=== PATIENT | female | born 1950 | race Two or more races ===

== ENCOUNTER 2021-08-31 13:37 | Inpatient (IN) | payer MEDICARE, MEDICAID ==
[~2021-08-31] VITALS: Ht 172.7 cm; Wt 105.3 kg
[2021-08-31] MEDS ORDERED: NALOXONE HCL 1MG/ML 2ML SYRINGE IV ONE (14:00)
[2021-08-31] MEDS ORDERED: ETOMIDATE (2MG/ML) 20ML VIAL IV ONE ×2 (14:20→14:25)
[2021-08-31] MEDS ORDERED: MIDAZOLAM DRIP 50 mg/50mL 50 ML IV ONE (14:20)
[2021-08-31] MEDS ORDERED: MIDAZOLAM HCL 5 MG/ML-1ML VIAL ONE (14:22)
[2021-08-31] MEDS ORDERED: NOREPINEPHRINE 8 MG/250ML KIT 250 ML IV ONE (14:24)
[2021-08-31] MEDS ORDERED: MIDAZOLAM HCL 5 MG/ML-1ML VIAL IV ONE (14:24)
[2021-08-31 14:26] VITALS: BP 80/42
[2021-08-31] MEDS: NOREPINEPHRINE 8 MG/250ML KIT 250 ML IV SCH ×2 (14:30→21:45)
[2021-08-31] MEDS: MIDAZOLAM DRIP 50 mg/50mL 50 ML IV SCH (14:47)
[2021-08-31 14:52] LABS: Hematocrit 26.1 % (36.0-46.0); Hemoglobin 8.5 g/dL (12.2-16.2); Mean Corpuscular Hemoglobin 29.4 pg (28.0-32.0); Mean Corpuscular Hgb Conc. 32.6 g/dL (32.0-36.0); Mean Corpuscular Volume 90.2 fL (80.0-100.0); Red Blood Cells 2.89 10^6/uL (4.0-5.20); Red Cell Distribution Width 16.7 % (11.8-14.3)
[2021-08-31 14:55] LABS: White Blood Cell 1.2 10^3/uL (4.4-10.8)
[2021-08-31 14:56] LABS: Basophils % (manual) 0 (0.0-2.0); Blast Cells 0; Eosinophils % (manual) 0 (0-7); Metamyelocytes % 0; Myelocytes % 0; Promyelocytes % 0; Reactive Lymphocytes 0
[2021-08-31 15:06] LABS: Albumin 1.6 g/dL (3.4-5.0); Anion Gap 10 (5-15); Blood Alcohol < 3.0 mg/dL (0-5); Blood Urea Nitrogen 68 mg/dL (7-18); Calcium 7.3 mg/dL (8.5-10.1); Carbon Dioxide 14 mmol/L (21-32); Chloride 122 mmol/L (98-107); Glucose 54 mg/dL (74-106); Potassium 3.8 mmol/L (3.5-5.1); Sodium 146 mmol/L (136-145)
[2021-08-31 15:09] LABS: Alanine Aminotransferase 9 U/L (13-56); Alkaline Phosphatase 45 U/L (45-117); Aspartate Aminotransferase 17 U/L (15-37); BUN/Creatinine Ratio 67.3; Bilirubin, Total 0.4 mg/dL (0.2-1.0); GFR African American 69 mL/min; GFR Non-African American 57 mL/min; Total Protein 4.5 g/dL (6.4-8.2)
[2021-08-31 15:19] LABS: Band Neutrophils % (manual) 6; Lymphocytes % (manual) 15 (10.0-50.0); Monocytes % (manual) 4 (0-12)
[2021-08-31 15:28] LABS: Urine Bacteria MANY /hpf (None Seen); Urine Blood 1+ /uL (Negative); Urine Specific Gravity 1.013 (1.001-1.035); Urine WBC 13 /hpf (0 - 5); Urine WBC Clumps PRESENT /hpf (None Seen)
[2021-08-31 15:41] LABS: Amphetamine Screen, Urine NEGATIVE (NEGATIVE); Barbiturate Scree,Urine NEGATIVE (NEGATIVE); Benzodiazephine Screen, Urine NEGATIVE (NEGATIVE); Cannabinoid Screen, Urine NEGATIVE (NEGATIVE); Cocaine Screen, Urine NEGATIVE (NEGATIVE); Opiate Scree,Urine NEGATIVE (NEGATIVE); Phencyclidine Screen, Urine NEGATIVE (NEGATIVE)
[2021-08-31] MEDS ORDERED: DEXTROSE 50% SYRINGE 50 ML IV ONE (15:56)
[2021-08-31 16:28] VITALS: BP 127/71
[2021-08-31] MEDS ORDERED: DEXTROSE (50%) 50ML SYRG IV ONE ×3 (16:30→20:00)
[2021-08-31] MEDS ORDERED: ACCU-CHEK COMFORT CURVE STRIP VI ONE ×2 (16:30→16:45)
[2021-08-31] MEDS ORDERED: DEXTROSE 10% 1,000 ML IV ONE (18:00)
[2021-08-31 18:30] VITALS: BP 120/39
[2021-08-31 20:10] VITALS: BP 120/66
[2021-08-31] MEDS ORDERED: PIPERACILLIN-TAZOB 3.375GM 100 ML IV ONE (20:30)
[2021-08-31] MEDS ORDERED: HYDROCORTISONE SOD SUCC 100 MG/2ML INJ VIAL IV ONE (21:00)
[2021-08-31] MEDS: VASOPRESSIN 50 UNITS in D5W 5% 247.5 ML IV SCH (21:06)
[2021-08-31] MEDS ORDERED: VANCOMYCIN 1GM/250ML 250 ML IV ONE ×2 (21:30→22:45)
[2021-08-31] MEDS: D5W/SOD CHL 0.45% 1,000 ML IV SCH (21:45)
[2021-08-31] MEDS ORDERED: ONDANSETRON HCL 4 MG/2 ML VIAL IV PRN (21:45)
[2021-08-31] MEDS ORDERED: DEXTROSE (50%) 50ML SYRG IV PRN (21:45)
[2021-08-31] MEDS ORDERED: VANCOMYCIN PER PHARMACY 0 MG IV SCH (21:45)
[2021-08-31] MEDS ORDERED: ACETAMINOPHEN 650 MG RECT SUPP PR PRN (21:45)
[2021-08-31] MEDS ORDERED: ALBUMIN 25% 100 ML IV ONE (22:00)
[2021-08-31 22:30] VITALS: BP 86/42
[2021-08-31] MEDS: FAMOTIDINE (10MG/ML) 2ML VL IV SCH (22:59)
[2021-08-31] MEDS ORDERED: NITROGLYCERIN 0.4 MG SL TAB SL PRN (23:30)
[2021-08-31] MEDS ORDERED: MORPHINE SULFATE INJECTION 2 MG/ML SYRG IV PRN (23:30)
[2021-08-31] MEDS: ACCU-CHEK COMFORT CURVE STRIP VI SCH (23:58)
[2021-08-31] MEDS: InsuLIN REG 1unit/0.01ml Soln (100units/ml) SC SCH (23:58)
[2021-09-01] VITALS (11 sets, daily range): BP systolic 96–104; BP diastolic 43–76
[2021-09-01] MEDS: NOREPINEPHRINE 8 MG/250ML KIT 250 ML IV SCH ×2 (02:32→20:53)
[2021-09-01] MEDS: InsuLIN REG 1unit/0.01ml Soln (100units/ml) SC SCH ×5 (04:00→20:21)
[2021-09-01] MEDS: ACCU-CHEK COMFORT CURVE STRIP VI SCH ×5 (04:11→20:17)
[2021-09-01] MEDS: ALBUMIN 25% 50 ML IV SCH ×3 (05:56→22:30)
[2021-09-01] MEDS: MIDAZOLAM DRIP 50 mg/50mL 50 ML IV SCH ×2 (06:20→21:30)
[2021-09-01 07:27] LABS: Hematocrit 31.6 % (36.0-46.0); Hemoglobin 9.9 g/dL (12.2-16.2); Mean Corpuscular Hgb Conc. 31.5 g/dL (32.0-36.0); Mean Corpuscular Volume 92.1 fL (80.0-100.0); Red Blood Cells 3.43 10^6/uL (4.0-5.20); Red Cell Distribution Width 17.3 % (11.8-14.3)
[2021-09-01 07:50] LABS: Basophils % (manual) 0 (0.0-2.0); Promyelocytes % 0; Reactive Lymphocytes 0
[2021-09-01 07:51] LABS: Blast Cells 0
[2021-09-01 08:11] LABS: Albumin 1.9 g/dL (3.4-5.0); Calcium 7.4 mg/dL (8.5-10.1); Potassium 3.6 mmol/L (3.5-5.1)
[2021-09-01 08:14] LABS: BUN/Creatinine Ratio 65.4; Bilirubin, Total 0.4 mg/dL (0.2-1.0); Total Protein 4.9 g/dL (6.4-8.2)
[2021-09-01] MEDS ORDERED: SODIUM BICARBONATE 8.4 % INJ 50ML VIAL IV ONE (08:45)
[2021-09-01] MEDS: cefTRIAXone 1GM/50ML D5W 50 ML IV SCH ×2 (09:00→11:59)
[2021-09-01] MEDS: PHENYLEPHRINE IV 250 ML IV SCH ×3 (09:00→22:48)
[2021-09-01] MEDS ORDERED: SODIUM BICARBONATE 50ML VIAL 150 ML in D5W/SOD CHL 0.45% 1,000 ML IV STA (09:28)
[2021-09-01 09:40] LABS: Band Neutrophils % (manual) 18; Eosinophils % (manual) 2 (0-7); Lymphocytes % (manual) 11 (10.0-50.0); Metamyelocytes % 3; Monocytes % (manual) 15 (0-12); Myelocytes % 1
[2021-09-01] MEDS: FAMOTIDINE (10MG/ML) 2ML VL IV SCH ×2 (10:00→22:15)
[2021-09-01] MEDS: HYDROCORTISONE SOD SUCC 100 MG/2ML INJ VIAL IV SCH ×3 (10:00→22:00)
[2021-09-01] MEDS: VANCOMYCIN 1GM/250ML 250 ML IV SCH (17:00)
[2021-09-01] MEDS: D5W/SOD CHL 0.45% 1,000 ML IV SCH (17:45)
[2021-09-01] MEDS ORDERED: SODIUM BICARBONATE 8.4% INJ 50ML SYRINGE ONE (20:25)
[2021-09-01] MEDS ORDERED: NITROGLYCERIN 0.4 MG SL TAB SL ONE (21:03)
[2021-09-01] MEDS: VASOPRESSIN 50 UNITS in D5W 5% 247.5 ML IV SCH (21:15)
[2021-09-01] MEDS: SODIUM BICARB 50ML SYR 150 ML in D5W/SOD CHL 0.45% 1,000 ML IV SCH (21:45)
[2021-09-02] VITALS (56 sets, daily range): BP systolic 86–195; BP diastolic 42–78
[2021-09-02] MEDS: ACCU-CHEK COMFORT CURVE STRIP VI SCH ×6 (00:09→20:00)
[2021-09-02] MEDS: NOREPINEPHRINE 8 MG/250ML KIT 250 ML IV SCH ×2 (02:00→06:31)
[2021-09-02] MEDS: MIDAZOLAM DRIP 50 mg/50mL 50 ML IV SCH (04:30)
[2021-09-02] MEDS: PHENYLEPHRINE IV 250 ML IV SCH ×3 (04:30→20:36)
[2021-09-02] MEDS: InsuLIN REG 1unit/0.01ml Soln (100units/ml) SC SCH ×6 (04:33→20:00)
[2021-09-02] MEDS: HYDROCORTISONE SOD SUCC 100 MG/2ML INJ VIAL IV SCH ×4 (06:30→20:39)
[2021-09-02 08:10] LABS: Basophils # (auto) 0 10 ^3/uL (0-0.2); Basophils % (auto) 0.1 % (0.0-2.0); Eosinophils # (auto) 0.1 10 ^3/uL (0-0.8); Eosinophils % (auto) 1.1 % (0.0-7.0); Hemoglobin 9.6 g/dL (12.2-16.2); Lymphocytes # (auto) 0.2 10 ^3/uL (0.4-5.4); Lymphocytes % (auto) 2.3 % (10.0-50.0); Mean Corpuscular Hemoglobin 29.6 pg (28.0-32.0); Mean Corpuscular Hgb Conc. 33.2 g/dL (32.0-36.0); Mean Corpuscular Volume 89.1 fL (80.0-100.0); Monocytes # (auto) 0.2 10 ^3/uL (0-1.3); Neutrophils # (auto) 8.8 10 ^3/uL (1.6-8.6); Neutrophils % (auto) 94.5 % (37.0-80.0); Nucleated Red Blood Cells % 0.1 %; Red Blood Cells 3.26 10^6/uL (4.0-5.20); Red Cell Distribution Width 17.2 % (11.8-14.3); White Blood Cell 9.3 10^3/uL (4.4-10.8)
[2021-09-02 08:27] LABS: Albumin 1.7 g/dL (3.4-5.0); Calcium 6.5 mg/dL (8.5-10.1); Magnesium 2.1 mg/dL (1.6-2.6); Potassium 3.6 mmol/L (3.5-5.1)
[2021-09-02 08:31] LABS: BUN/Creatinine Ratio 55.9; Bilirubin, Total 0.5 mg/dL (0.2-1.0)
[2021-09-02] MEDS ORDERED: AMIODARONE 450mg/250ml AE 250 ML IV SCH (08:45)
[2021-09-02] MEDS ORDERED: AMIODARONE HCL 150 MG in D5W 5% 100 ML IV ONE (08:45)
[2021-09-02] MEDS ORDERED: AMIODARONE HCL (50 MG/ ML) 3 ML VIAL IV ONE (09:49)
[2021-09-02] MEDS ORDERED: AMIODARONE 450mg/250ml AE 250 ML IV ONE (09:49)
[2021-09-02] MEDS: FAMOTIDINE (10MG/ML) 2ML VL IV SCH ×2 (09:54→20:39)
[2021-09-02] MEDS: VANCOMYCIN 1GM/250ML 250 ML IV SCH (11:00)
[2021-09-02] MEDS: SODIUM BICARB 50ML SYR 150 ML in D5W/SOD CHL 0.45% 1,000 ML IV SCH ×2 (13:45→20:39)
[2021-09-02] MEDS: D5W/SOD CHL 0.45% 1,000 ML IV SCH (13:45)
[2021-09-02] MEDS: AMIODARONE 450mg/250ml AE 250 ML IV SCH ×2 (14:45→20:39)
[2021-09-02 16:34] LABS: Basophils # (auto) 0 10 ^3/uL (0-0.2); Basophils % (auto) 0.1 % (0.0-2.0); Eosinophils # (auto) 0 10 ^3/uL (0-0.8); Eosinophils % (auto) 0.1 % (0.0-7.0); Hematocrit 26.8 % (36.0-46.0); Hemoglobin 8.9 g/dL (12.2-16.2); Lymphocytes # (auto) 0.2 10 ^3/uL (0.4-5.4); Lymphocytes % (auto) 2.2 % (10.0-50.0); Mean Corpuscular Hgb Conc. 33.2 g/dL (32.0-36.0); Mean Corpuscular Volume 90.1 fL (80.0-100.0); Monocytes # (auto) 0.1 10 ^3/uL (0-1.3); Monocytes % (auto) 1.3 % (0.0-12.0); Neutrophils # (auto) 9.9 10 ^3/uL (1.6-8.6); Neutrophils % (auto) 96.3 % (37.0-80.0); Nucleated Red Blood Cells % 0.2 %; Red Blood Cells 2.97 10^6/uL (4.0-5.20); Red Cell Distribution Width 17.4 % (11.8-14.3); White Blood Cell 10.2 10^3/uL (4.4-10.8)
[2021-09-02 16:49] LABS: Albumin 1.5 g/dL (3.4-5.0); Anion Gap 16 (5-15); Blood Urea Nitrogen 66 mg/dL (7-18); Calcium 6.4 mg/dL (8.5-10.1); Carbon Dioxide 10 mmol/L (21-32); Chloride 118 mmol/L (98-107); Glucose 171 mg/dL (74-106); Magnesium 2.3 mg/dL (1.6-2.6); Potassium 3.8 mmol/L (3.5-5.1); Sodium 144 mmol/L (136-145)
[2021-09-02 16:50] LABS: % Iron Saturation 38.6 % (15-50)
[2021-09-02 16:51] LABS: Lactic Acid w/Reflex 7.2 mmol/L (0.4-2.0)
[2021-09-02 16:57] LABS: Alanine Aminotransferase 39 U/L (13-56); Alkaline Phosphatase 73 U/L (45-117); Aspartate Aminotransferase 45 U/L (15-37); BUN/Creatinine Ratio 54.5; Bilirubin, Total 0.5 mg/dL (0.2-1.0); GFR African American 56 mL/min; GFR Non-African American 46 mL/min; Pre Albumin 3.9 mg/dL (20.0-40.0); Total Protein 3.7 g/dL (6.4-8.2)
[2021-09-02 16:58] LABS: Thyroid Stimulating Hormone 0.82 uIU/mL (0.358-3.74)
[2021-09-02 17:14] LABS: CRP High Sensitivity > 19.0 mg/dL (< 0.3)
[2021-09-02 19:26] LABS: Ferritin > 1650.0 ng/mL (10-322)
[2021-09-02 20:33] LABS: INR 1.69 (0.9-1.15); Partial Thromboplastin Time 53.1 sec (23.6-33.0)
[2021-09-02] MEDS: VASOPRESSIN 50 UNITS in D5W 5% 247.5 ML IV SCH (21:15)
[2021-09-03] VITALS (85 sets, daily range): BP systolic 92–222; BP diastolic 30–85
[2021-09-03] MEDS: PHENYLEPHRINE IV 250 ML IV SCH ×4 (01:36→20:09)
[2021-09-03] MEDS: NOREPINEPHRINE 8 MG/250ML KIT 250 ML IV SCH ×2 (01:36→20:34)
[2021-09-03] MEDS: HYDROCORTISONE SOD SUCC 100 MG/2ML INJ VIAL IV SCH ×4 (03:39→22:00)
[2021-09-03] MEDS: ACCU-CHEK COMFORT CURVE STRIP VI SCH ×4 (03:39→11:29)
[2021-09-03] MEDS: InsuLIN REG 1unit/0.01ml Soln (100units/ml) SC SCH ×4 (04:00→11:28)
[2021-09-03] MEDS: VANCOMYCIN 1GM/250ML 250 ML IV SCH (05:00)
[2021-09-03] MEDS: cefTRIAXone 1GM/50ML D5W 50 ML IV SCH (09:00)
[2021-09-03 09:55] LABS: Basophils # (auto) 0 10 ^3/uL (0-0.2); Basophils % (auto) 0.1 % (0.0-2.0); Eosinophils # (auto) 0 10 ^3/uL (0-0.8); Eosinophils % (auto) 0.1 % (0.0-7.0); Hematocrit 27.3 % (36.0-46.0); Hemoglobin 8.8 g/dL (12.2-16.2); Lymphocytes # (auto) 0.2 10 ^3/uL (0.4-5.4); Lymphocytes % (auto) 1.8 % (10.0-50.0); Mean Corpuscular Hemoglobin 29.2 pg (28.0-32.0); Mean Corpuscular Hgb Conc. 32.4 g/dL (32.0-36.0); Mean Corpuscular Volume 90.1 fL (80.0-100.0); Monocytes # (auto) 0.3 10 ^3/uL (0-1.3); Neutrophils # (auto) 8.9 10 ^3/uL (1.6-8.6); Nucleated Red Blood Cells % 0.4 %; Red Blood Cells 3.03 10^6/uL (4.0-5.20); Red Cell Distribution Width 17.7 % (11.8-14.3); White Blood Cell 9.4 10^3/uL (4.4-10.8)
[2021-09-03 09:56] LABS: Potassium 3.4 mmol/L (3.5-5.1)
[2021-09-03] MEDS: AMIODARONE HCL 200 MG TAB PO SCH ×2 (10:00→22:00)
[2021-09-03] MEDS: FAMOTIDINE (10MG/ML) 2ML VL IV SCH ×2 (10:00→22:00)
[2021-09-03 10:05] LABS: Albumin 1.3 g/dL (3.4-5.0); BUN/Creatinine Ratio 55.8; Calcium 6.3 mg/dL (8.5-10.1); Magnesium 1.6 mg/dL (1.6-2.6); Total Protein 3.4 g/dL (6.4-8.2)
[2021-09-03 10:12] LABS: Bilirubin, Total 0.6 mg/dL (0.2-1.0)
[2021-09-03] MEDS: SODIUM BICARB 50ML SYR 75 ML in D5W/SOD CHL 0.45% 1,000 ML IV SCH ×2 (10:30→23:00)
[2021-09-03] MEDS ORDERED: FUROSEMIDE 100 MG/10ML VIAL IV ONE (10:30)
[2021-09-03] MEDS: POTASSIUM CHL 20MEQ/100ML 100 ML IV SCH ×3 (10:45→14:45)
[2021-09-03 11:12] LABS: Free T4 (Free Thyroxine) 0.79 ng/dL (0.89-1.76)
[2021-09-03 11:13] LABS: Folate (Folic Acid) 6.81 ng/mL (5.38-24)
[2021-09-03] MEDS ORDERED: VANCOMYCIN 1GM/250ML 250 ML IV SCH ×2 (13:30→17:15)
[2021-09-03] MEDS: MIDAZOLAM DRIP 50 mg/50mL 50 ML IV SCH (14:45)
[2021-09-03] MEDS: AMIODARONE 450mg/250ml AE 250 ML IV SCH (19:33)
[2021-09-03] MEDS: VASOPRESSIN 50 UNITS in D5W 5% 247.5 ML IV SCH (23:30)
[2021-09-04] VITALS (78 sets, daily range): BP systolic 30–164; BP diastolic 24–92
[2021-09-04] MEDS: HYDROCORTISONE SOD SUCC 100 MG/2ML INJ VIAL IV SCH ×2 (04:00→10:00)
[2021-09-04] MEDS: NOREPINEPHRINE 8 MG/250ML KIT 250 ML IV SCH (04:32)
[2021-09-04 05:47] LABS: Hemoglobin 8.3 g/dL (12.2-16.2); White Blood Cell 7.3 10^3/uL (4.4-10.8)
[2021-09-04 05:54] LABS: Hematocrit 24.7 % (36.0-46.0); Mean Corpuscular Hemoglobin 29.6 pg (28.0-32.0); Mean Corpuscular Hgb Conc. 33.7 g/dL (32.0-36.0); Mean Corpuscular Volume 87.8 fL (80.0-100.0); Red Blood Cells 2.81 10^6/uL (4.0-5.20); Red Cell Distribution Width 17.3 % (11.8-14.3)
[2021-09-04 06:05] LABS: Magnesium 1.5 mg/dL (1.6-2.6); Potassium 3.3 mmol/L (3.5-5.1)
[2021-09-04 06:10] LABS: BUN/Creatinine Ratio 61.6
[2021-09-04 06:22] LABS: Basophils % (manual) 0 (0.0-2.0); Blast Cells 0; Eosinophils % (manual) 0 (0-7); Metamyelocytes % 0; Myelocytes % 0; Promyelocytes % 0; Reactive Lymphocytes 0
[2021-09-04] MEDS ORDERED: CALCIUM GLUC 1,000mg/50ml-NS 50 ML IV ONE (07:30)
[2021-09-04] MEDS ORDERED: SODIUM BICARBONATE 8.4 % INJ 50ML VIAL IV ONE (07:30)
[2021-09-04] MEDS ORDERED: POTASSIUM CHL 20MEQ/100ML 100 ML IV SCH (07:30)
[2021-09-04] MEDS ORDERED: FUROSEMIDE 20 MG/2 ML VIAL IV SCH (07:30)
[2021-09-04] MEDS ORDERED: FUROSEMIDE 20 MG/2 ML VIAL ONE (07:50)
[2021-09-04] MEDS ORDERED: SODIUM BICARBONATE 8.4% INJ 50ML SYRINGE ONE (07:50)
[2021-09-04] MEDS: SODIUM BICARB 50ML SYR 75 ML in D5W/SOD CHL 0.45% 1,000 ML IV SCH (08:00)
[2021-09-04] MEDS: cefTRIAXone 1GM/50ML D5W 50 ML IV SCH (09:00)
[2021-09-04 09:50] LABS: Band Neutrophils % (manual) 17; Lymphocytes % (manual) 13 (10.0-50.0); Monocytes % (manual) 6 (0-12)
[2021-09-04] MEDS: AMIODARONE HCL 200 MG TAB PO SCH (10:00)
[2021-09-04] MEDS: FAMOTIDINE (10MG/ML) 2ML VL IV SCH (10:00)
[2021-09-04] MEDS ORDERED: MORPHINE SULFATE INJECTION 2 MG/ML SYRG IV PRN (13:15)
[2021-09-04] MEDS ORDERED: LORazepam 2MG/ML-1ML VIAL IV PRN (13:15)
[2021-09-04] MEDS ORDERED: PHENYLEPHRINE IV 250 ML IV ONE (15:58)
[2021-09-04] MEDS ORDERED: NOREPINEPHRINE 8 MG/250ML KIT 250 ML IV ONE (17:37)
== END 2021-09-04 21:03 | DRG 870 ==
LOC: ER 13:37 → TELE 23:27 → DOU IN ICU 09-02 04:13
PROVIDERS: ADMIT Nurse Practitioner Family; ATTEND Internal Medicine Geriatric Medicine
PROC: 5A1955Z Respiratory Ventilation, Greater than 96 Consecutive Hours (ICD-10-PCS; 2021-08-31)
PROC: 0BH17EZ Insertion of Endotracheal Airway into Trachea, Via Natural or Artificial Opening (ICD-10-PCS; 2021-08-31)
PROC: 03HY32Z Insertion of Monitoring Device into Upper Artery, Percutaneous Approach (ICD-10-PCS; 2021-09-03)
PROC: 4A133B1 Monitoring of Arterial Pressure, Peripheral, Percutaneous Approach (ICD-10-PCS; 2021-09-03)
PROC: 4A133J1 Monitoring of Arterial Pulse, Peripheral, Percutaneous Approach (ICD-10-PCS; 2021-09-03)
PROC: 06HM33Z Insertion of Infusion Device into Right Femoral Vein, Percutaneous Approach (ICD-10-PCS; principal; 2021-09-04)
DX: A41.9 Sepsis, unspecified organism (principal); J96.01 Acute respiratory failure with hypoxia; J18.9 Pneumonia, unspecified organism; R65.21 Severe sepsis with septic shock; I21.4 Non-ST elevation (NSTEMI) myocardial infarction; G93.41 Metabolic encephalopathy; J90 Pleural effusion, not elsewhere classified; N17.9 Acute kidney failure, unspecified; N39.0 Urinary tract infection, site not specified; J98.11 Atelectasis; D69.6 Thrombocytopenia, unspecified; D70.9 Neutropenia, unspecified; E16.2 Hypoglycemia, unspecified; Z66 Do not resuscitate; Z20.822 Contact with and (suspected) exposure to COVID-19; Z74.01 Bed confinement status; D64.9 Anemia, unspecified; B96.1 Klebsiella pneumoniae [K. pneumoniae] as the cause of diseases classified elsewhere; E87.6 Hypokalemia; I12.9 Hypertensive chronic kidney disease with stage 1 through stage 4 chronic kidney disease, or unspecified chronic kidney disease; I48.91 Unspecified atrial fibrillation; E88.09 Other disorders of plasma-protein metabolism, not elsewhere classified; N18.31 Chronic kidney disease, stage 3a; Z86.73 Personal history of transient ischemic attack (TIA), and cerebral infarction without residual deficits; Z51.5 Encounter for palliative care
CPT/HCPCS: 31500; 36415; 36556; 36600; 70450; 71045; 80048; 80053; 80202; 80307; 80320; 81001; 82040; 82607; 82668; 82728; 82746; 82805; 82962; 83540; 83550; 83605; 83615; 83735; 83880; 84439; 84443; 84484; 85007; 85025; 85027; 85045; 85379; 85610; 85652; 85730; 86141; 86703; 86850; 86870; 86900; 86901; 87040; 87070; 87077; 87081; 87086; 87088; 87186; 87205; 87426; 93005; 94002; 94003; 96365; 96367; 96375; 99291; G0378; J0696; J1815; J2250; J2543; J3480; J3490; J7060; P9047